=== PATIENT | female | born 1945 | race Two or more races ===

== ENCOUNTER 2021-07-30 15:22 | Emergency (ER) | payer MEDICARE, OTHER ==
[~2021-07-30] VITALS: Ht 157.5 cm; Wt 67.1 kg
[2021-07-30 15:35] VITALS: BP 101/45
[2021-07-30] MEDS ORDERED: methylPREDNISolone SOD SUCC 125 MG/2 ML VL IV ONE (15:45)
[2021-07-30 17:03] LABS: Basophils # (auto) 0 10 ^3/uL (0-0.2); Basophils % (auto) 0.5 % (0.0-2.0); Eosinophils # (auto) 0 10 ^3/uL (0-0.8); Hemoglobin 13.5 g/dL (12.2-16.2); Lymphocytes # (auto) 1.1 10 ^3/uL (0.4-5.4); Lymphocytes % (auto) 22.8 % (10.0-50.0); Mean Corpuscular Hemoglobin 29.6 pg (28.0-32.0); Mean Corpuscular Hgb Conc. 32.9 g/dL (32.0-36.0); Monocytes # (auto) 0.6 10 ^3/uL (0-1.3); Monocytes % (auto) 11.6 % (0.0-12.0); Neutrophils # (auto) 3.1 10 ^3/uL (1.6-8.6); Neutrophils % (auto) 65.1 % (37.0-80.0); Nucleated Red Blood Cells % 0.1 %; Red Blood Cells 4.56 10^6/uL (4.0-5.20); Red Cell Distribution Width 13.2 % (11.8-14.3); White Blood Cell 4.8 10^3/uL (4.4-10.8)
[2021-07-30 17:36] LABS: Albumin 2.9 g/dL (3.4-5.0); Calcium 7.7 mg/dL (8.5-10.1); Potassium 3.7 mmol/L (3.5-5.1)
[2021-07-30 17:45] LABS: BUN/Creatinine Ratio 13.6; Bilirubin, Total 0.4 mg/dL (0.2-1.0); CRP High Sensitivity 9.12 mg/dL (< 0.3); Total Protein 6.7 g/dL (6.4-8.2)
[2021-07-31] MEDS ORDERED: DEXT1SYP9 PO (10:38)
[2021-07-31] MEDS ORDERED: DEXA6TAB6 PO (10:38)
[2021-07-31] MEDS ORDERED: ALBUAER3 IN (10:38)
[2021-07-31] MEDS ORDERED: IPRIH IN (10:38)
[2021-07-31] MEDS ORDERED: DOXY-338 PO (10:38)
== END 2021-07-30 19:59 | disposition left against medical advice (07) ==
LOC: ER 15:22
DX: U07.1 COVID-19 (principal); J96.00 Acute respiratory failure, unspecified whether with hypoxia or hypercapnia
CPT/HCPCS: 36415; 71045; 80053; 82728; 83605; 85025; 85379; 86141; 87040; 87426

== ENCOUNTER 2021-07-31 03:08 | Inpatient (IN) | payer MEDICARE, OTHER ==
[~2021-07-31] VITALS: Ht 157.5 cm; Wt 69.5 kg
[2021-07-31 07:18] LABS: Basophils # (auto) 0 10 ^3/uL (0-0.2); Basophils % (auto) 0.2 % (0.0-2.0); Eosinophils # (auto) 0 10 ^3/uL (0-0.8); Hematocrit 41.2 % (36.0-46.0); Lymphocytes # (auto) 1.5 10 ^3/uL (0.4-5.4); Mean Corpuscular Hemoglobin 30.6 pg (28.0-32.0); Mean Corpuscular Volume 89.9 fL (80.0-100.0); Monocytes # (auto) 0.6 10 ^3/uL (0-1.3); Monocytes % (auto) 10.6 % (0.0-12.0); Neutrophils # (auto) 3.7 10 ^3/uL (1.6-8.6); Neutrophils % (auto) 63.2 % (37.0-80.0); Nucleated Red Blood Cells % 0.1 %; Red Blood Cells 4.58 10^6/uL (4.0-5.20); Red Cell Distribution Width 13.3 % (11.8-14.3); White Blood Cell 5.9 10^3/uL (4.4-10.8)
[2021-07-31 07:31] LABS: Calcium 8.2 mg/dL (8.5-10.1)
[2021-07-31 07:34] LABS: BUN/Creatinine Ratio 12.5; Bilirubin, Total 0.6 mg/dL (0.2-1.0); Total Protein 7.6 g/dL (6.4-8.2)
[2021-07-31] MEDS: DexAMETHasone SOD PHOS 10MG/1ML VIAL INJ IV ONE (07:45)
[2021-07-31] MEDS: cefTRIAXone 1GM/50ML D5W 50 ML IV ONE (07:45)
[2021-07-31] MEDS: AZITHROMYCIN 500MG/ 250ML 250 ML IV ONE ×2 (08:19→08:23)
[2021-07-31] MEDS ORDERED: ALBUTEROL SULF 2.5 MG/0.5ML(0.5%) NEB SOLN NEB ONE (09:15)
[2021-07-31] MEDS ORDERED: guaiFENesin-DM 100/10mg/5ml SYR PO ONE (09:15)
[2021-07-31] MEDS ORDERED: SODIUM CHLORIDE 0.9% 1,000 ML IV ONE (09:15)
[2021-07-31] MEDS ORDERED: ALBUAER3 IN (10:38)
[2021-07-31] MEDS ORDERED: DEXT1SYP9 PO (10:38)
[2021-07-31] MEDS ORDERED: IPRIH IN (10:38)
[2021-07-31] MEDS ORDERED: DOXY-338 PO (10:38)
[2021-07-31] MEDS ORDERED: DEXA6TAB6 PO (10:38)
[2021-07-31] MEDS ORDERED: HYDROcodone-ACET 5/325MG TAB PO PRN (10:45)
[2021-07-31] MEDS ORDERED: ACETAMINOPHEN 325 MG TAB PO PRN (10:45)
[2021-07-31 11:34] LABS: Anion Gap 10 (5-15); BUN/Creatinine Ratio 14.8; Blood Urea Nitrogen 9 mg/dL (7-18); Carbon Dioxide 23 mmol/L (21-32); Chloride 96 mmol/L (98-107); GFR African American 123 mL/min; GFR Non-African American 102 mL/min; Glucose 116 mg/dL (74-106); Potassium 3.8 mmol/L (3.5-5.1); Sodium 129 mmol/L (136-145)
[2021-07-31 11:35] LABS: Calcium 7.5 mg/dL (8.5-10.1)
[2021-07-31] MEDS: ALBUTEROL SULF HFA 90MCG INH 200DOSE IN PRN (19:28)
[2021-07-31 21:08] LABS: Urine Bacteria FEW /hpf (None Seen); Urine Blood Negative /uL (Negative); Urine Specific Gravity 1.003 (1.001-1.035); Urine WBC <1 /hpf (0 - 5)
[2021-07-31 21:52] VITALS: BP 104/57
[2021-07-31] MEDS: DOXYCYCLINE 100 MG TAB/CAP PO SCH (22:16)
[2021-08-01] MEDS: guaiFENesin-DM 100/10mg/5ml SYR PO PRN ×2 (00:05→10:41)
[2021-08-01 07:23] LABS: Basophils # (auto) 0 10 ^3/uL (0-0.2); Basophils % (auto) 0.1 % (0.0-2.0); Calcium 8.1 mg/dL (8.5-10.1); Eosinophils # (auto) 0 10 ^3/uL (0-0.8); Eosinophils % (auto) 0.1 % (0.0-7.0); Hematocrit 39.5 % (36.0-46.0); Lymphocytes # (auto) 1.1 10 ^3/uL (0.4-5.4); Lymphocytes % (auto) 15.6 % (10.0-50.0); Mean Corpuscular Hemoglobin 29.6 pg (28.0-32.0); Mean Corpuscular Hgb Conc. 32.9 g/dL (32.0-36.0); Monocytes # (auto) 0.7 10 ^3/uL (0-1.3); Monocytes % (auto) 9.6 % (0.0-12.0); Neutrophils # (auto) 5.3 10 ^3/uL (1.6-8.6); Neutrophils % (auto) 74.6 % (37.0-80.0); Nucleated Red Blood Cells % 0.1 %; Red Blood Cells 4.39 10^6/uL (4.0-5.20); Red Cell Distribution Width 13.6 % (11.8-14.3); White Blood Cell 7.2 10^3/uL (4.4-10.8)
[2021-08-01 08:13] LABS: CRP High Sensitivity 8.5 mg/dL (< 0.3)
[2021-08-01 08:47] VITALS: BP 103/54
[2021-08-01 09:00] VITALS: BP 103/54
[2021-08-01] MEDS ORDERED: REMDESIVIR PER PHARMACY 0 ML IV SCH (10:15)
[2021-08-01] MEDS ORDERED: guaiFENesin-CODEINE Liq 5 ML UD PO PRN (10:30)
[2021-08-01] MEDS: ALBUTEROL SULF HFA 90MCG INH 200DOSE IN PRN ×2 (10:34→23:50)
[2021-08-01] MEDS: BUDESONIDE (INHALATION) 180 MCG IH IN SCH ×2 (10:35→22:30)
[2021-08-01] MEDS: DexAMETHasone SOD PHOS 10MG/1ML VIAL INJ IV SCH (10:40)
[2021-08-01] MEDS: ZINC SULFATE 220mg CAP or TAB PO SCH (10:40)
[2021-08-01] MEDS: ENOXAPARIN SOD 40 MG/0.4 ML SYRINGE SC SCH (10:41)
[2021-08-01] MEDS: DOXYCYCLINE 100 MG TAB/CAP PO SCH ×2 (10:41→22:07)
[2021-08-01] MEDS: ASCORBIC ACID 1,000 MG TAB PO SCH (10:41)
[2021-08-01] MEDS: CHOLECALCIFEROL (VITD3) 2,000 UNIT CAP/TAB PO SCH (10:41)
[2021-08-01] MEDS ORDERED: LEVO75TA6 PO (10:55)
[2021-08-01 12:34] VITALS: BP 107/65
[2021-08-01] MEDS ORDERED: REMDESIVIR 200 MG in NS 210ml LOADING DOSE ADULT IV ONE (15:00)
[2021-08-01 16:35] VITALS: BP 109/71
[2021-08-01 20:00] VITALS: BP 115/64
[2021-08-01 22:00] VITALS: BP 115/68
[2021-08-02 05:17] VITALS: BP 114/74
[2021-08-02] MEDS: ALBUTEROL SULF HFA 90MCG INH 200DOSE IN PRN ×2 (06:06→22:47)
[2021-08-02] MEDS: BUDESONIDE (INHALATION) 180 MCG IH IN SCH ×2 (06:06→22:47)
[2021-08-02] MEDS: LEVOTHYROXINE SODIUM 25 MCG TAB PO SCH (06:50)
[2021-08-02 06:55] LABS: Basophils # (auto) 0 10 ^3/uL (0-0.2); Basophils % (auto) 0.1 % (0.0-2.0); Eosinophils # (auto) 0 10 ^3/uL (0-0.8); Hematocrit 38.7 % (36.0-46.0); Hemoglobin 12.4 g/dL (12.2-16.2); Lymphocytes # (auto) 1.3 10 ^3/uL (0.4-5.4); Lymphocytes % (auto) 15.5 % (10.0-50.0); Mean Corpuscular Hemoglobin 29.1 pg (28.0-32.0); Mean Corpuscular Hgb Conc. 32.1 g/dL (32.0-36.0); Mean Corpuscular Volume 90.5 fL (80.0-100.0); Monocytes % (auto) 11.5 % (0.0-12.0); Neutrophils # (auto) 6.3 10 ^3/uL (1.6-8.6); Neutrophils % (auto) 72.9 % (37.0-80.0); Red Blood Cells 4.28 10^6/uL (4.0-5.20); Red Cell Distribution Width 13.5 % (11.8-14.3); White Blood Cell 8.7 10^3/uL (4.4-10.8)
[2021-08-02 07:09] LABS: Albumin 2.5 g/dL (3.4-5.0); Calcium 7.8 mg/dL (8.5-10.1); Potassium 4.4 mmol/L (3.5-5.1)
[2021-08-02 07:22] LABS: BUN/Creatinine Ratio 20.4; Bilirubin, Total 0.4 mg/dL (0.2-1.0); CRP High Sensitivity 5.94 mg/dL (< 0.3); Total Protein 5.8 g/dL (6.4-8.2)
[2021-08-02 09:23] VITALS: BP 109/58
[2021-08-02] MEDS: ZINC SULFATE 220mg CAP or TAB PO SCH (09:45)
[2021-08-02] MEDS: DexAMETHasone SOD PHOS 10MG/1ML VIAL INJ IV SCH (09:45)
[2021-08-02] MEDS: CHOLECALCIFEROL (VITD3) 2,000 UNIT CAP/TAB PO SCH (09:45)
[2021-08-02] MEDS: DOXYCYCLINE 100 MG TAB/CAP PO SCH ×2 (09:45→21:07)
[2021-08-02] MEDS: ASCORBIC ACID 1,000 MG TAB PO SCH (09:45)
[2021-08-02] MEDS: ENOXAPARIN SOD 40 MG/0.4 ML SYRINGE SC SCH (09:46)
[2021-08-02 13:30] VITALS: BP 115/63
[2021-08-02] MEDS: REMDESIVIR 100mg 100 MG in SODIUM CHL 0.9% 230 ML IV SCH (15:27)
[2021-08-02 16:49] VITALS: BP 112/66
[2021-08-02 20:00] VITALS: BP 111/59
[2021-08-02] MEDS: guaiFENesin-DM 100/10mg/5ml SYR PO PRN (21:07)
[2021-08-02 21:50] VITALS: BP 111/59
[2021-08-03 05:00] VITALS: BP 120/72
[2021-08-03] MEDS: BUDESONIDE (INHALATION) 180 MCG IH IN SCH (05:50)
[2021-08-03] MEDS: ALBUTEROL SULF HFA 90MCG INH 200DOSE IN PRN (05:50)
[2021-08-03] MEDS: LEVOTHYROXINE SODIUM 25 MCG TAB PO SCH (06:30)
[2021-08-03 07:16] LABS: Basophils # (auto) 0 10 ^3/uL (0-0.2); Basophils % (auto) 0.2 % (0.0-2.0); Eosinophils # (auto) 0 10 ^3/uL (0-0.8); Hemoglobin 12.6 g/dL (12.2-16.2); Lymphocytes # (auto) 1.4 10 ^3/uL (0.4-5.4); Lymphocytes % (auto) 16.9 % (10.0-50.0); Mean Corpuscular Hemoglobin 29.8 pg (28.0-32.0); Mean Corpuscular Hgb Conc. 33.1 g/dL (32.0-36.0); Monocytes # (auto) 0.8 10 ^3/uL (0-1.3); Monocytes % (auto) 9.2 % (0.0-12.0); Neutrophils # (auto) 6.1 10 ^3/uL (1.6-8.6); Neutrophils % (auto) 73.7 % (37.0-80.0); Nucleated Red Blood Cells % 0.1 %; Red Blood Cells 4.22 10^6/uL (4.0-5.20); Red Cell Distribution Width 13.5 % (11.8-14.3); White Blood Cell 8.3 10^3/uL (4.4-10.8)
[2021-08-03 07:36] LABS: Potassium 4.1 mmol/L (3.5-5.1)
[2021-08-03 08:03] LABS: Albumin 2.4 g/dL (3.4-5.0); Bilirubin, Total 0.3 mg/dL (0.2-1.0); CRP High Sensitivity 3.93 mg/dL (< 0.3); Calcium 7.4 mg/dL (8.5-10.1); Total Protein 5.6 g/dL (6.4-8.2)
[2021-08-03 09:00] VITALS: BP 119/66
[2021-08-03] MEDS: DexAMETHasone SOD PHOS 10MG/1ML VIAL INJ IV SCH (10:50)
[2021-08-03] MEDS: ASCORBIC ACID 1,000 MG TAB PO SCH (10:51)
[2021-08-03] MEDS: DOXYCYCLINE 100 MG TAB/CAP PO SCH ×2 (10:51→21:35)
[2021-08-03] MEDS: ZINC SULFATE 220mg CAP or TAB PO SCH (10:51)
[2021-08-03] MEDS: CHOLECALCIFEROL (VITD3) 2,000 UNIT CAP/TAB PO SCH (10:52)
[2021-08-03] MEDS: ENOXAPARIN SOD 40 MG/0.4 ML SYRINGE SC SCH (10:54)
[2021-08-03 11:11] LABS: Free T4 (Free Thyroxine) 1.29 ng/dL (0.89-1.76)
[2021-08-03 11:12] LABS: T3 Total 0.52 ng/mL (0.60-1.81)
[2021-08-03 13:00] VITALS: BP 125/73
[2021-08-03] MEDS: REMDESIVIR 100mg 100 MG in SODIUM CHL 0.9% 230 ML IV SCH (15:00)
[2021-08-03 17:00] VITALS: BP 123/67
[2021-08-03 20:53] VITALS: BP 117/72
[2021-08-03 21:45] VITALS: BP 117/72
[2021-08-03] MEDS: guaiFENesin-DM 100/10mg/5ml SYR PO PRN (22:01)
== END 2021-08-03 22:37 | disposition home or self-care (01) | DRG 177 ==
LOC: ER 03:08 → TELE 10:41 → TELE-EAST 08-01 08:30
PROVIDERS: ADMIT Internal Medicine; ATTEND Internal Medicine
PROC: XW033E5 Introduction of Remdesivir Anti-infective into Peripheral Vein, Percutaneous Approach, New Technology Group 5 (ICD-10-PCS; principal; 2021-08-01)
DX: U07.1 COVID-19 (principal); J96.01 Acute respiratory failure with hypoxia; J12.82 Pneumonia due to coronavirus disease 2019; E87.1 Hypo-osmolality and hyponatremia; E03.9 Hypothyroidism, unspecified; E78.5 Hyperlipidemia, unspecified; R53.81 Other malaise; Z80.9 Family history of malignant neoplasm, unspecified; Z88.0 Allergy status to penicillin; Z88.2 Allergy status to sulfonamides; Z88.8 Allergy status to other drugs, medicaments and biological substances
CPT/HCPCS: 36415; 36600; 71045; 80048; 80053; 81001; 82728; 82805; 84439; 84443; 84480; 84484; 85025; 85379; 86141; 87426; 93005; 93306; 94640; 96365; 96366; 96367; 96372; 96376; 97116; 97163; 97530; 99291; G0378; J0696; J1100